=== PATIENT | female | born 1950 | race Caucasian/White ===

== ENCOUNTER 2019-09-22 11:59 | Emergency (ER) | payer MEDICARE, OTHER, SELFPAY ==
[2019-09-22 12:08] VITALS: BP 145/69; PULSE 77; RESP 24; TEMP 36.7; O2SAT 99; BMI 28.9
--- NOTE | 2019-09-22 12:12 | ED_ITS ---
Entered by Ginette Renae, acting as scribe for Mac Frank DO HPI - Dizziness General: Chief Complaint: Dizziness Stated Complaint: N/V DIZZY Time Seen by Provider: 09/22/19 12:12 Source: patient and family Mode of arrival: ambulatory Limitations: no limitations History of Present Illness: HPI Narrative: 61-year-old female presents emergency room complaining of dizziness worse when she moves her head better when she lies very still. She is had nausea with no vomiting or diarrhea no recent head injury. No chest pain no difficulty speech swallowing no facial drooping or vision changes. 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) Timing: sudden onset Severity: moderate Description: sense of movement, lightheadedness and difficulty walking Context: change in body position Exacerbating factors: change in body position (sitting upright) Relieving factors: lying down (on back) Associated symptoms: Reports no associated symptoms; Denies chest pain, chills, malaise or nasal congestion Associated neuro symptoms: Reports no associated symptoms Review of Systems General: Reports: 10 or more systems reviewed and unremarkable except in HPI and below Const: Denies: fever, chills, body aches, change in appetite, fatigue or malaise ENMT: Denies: throat pain, ear pain, nasal discharge or nasal congestion Card: Denies: chest pain, edema, shortness of breath on exertion or shortness of breath when lying down Resp: Denies: shortness of breath, productive cough or non-productive cough GI: Reports: other (dizziness) : Denies: flank pain, difficulty urinating, painful urination, urinary frequency or urinary urgency Skin/Breast: Denies: rash or itching PFSH ED PFSH: Social History Smoking and tobacco status: never smoked Physical Exam Const: COMMON NORMALS: average body habitus, oriented x3 and alert GENERAL APPEARANCE: cooperative, well kempt and well developed NUTRITIONAL APPEARANCE: obese ORIENTATION/CONSCIOUSNESS: Yes awake, Yes oriented to person and Yes oriented to place HENMT: COMMON NORMALS: normocephalic, head/scalp atraumatic, external ears normal, EAC's normal, TM's normal bilaterally, external nose normal, moist oral mucous membranes and oropharynx normal HEAD & SCALP: normocephalic and atraumatic NOSE: external nose normal EXTERNAL EAR: Yes external ears normal EXTERNAL AUDITORY CANAL: EAC's normal TYMPANIC MEMBRANE: TM's normal bilaterally MOUTH: oral and palatal mucosa normal, lip normal and tongue normal THROAT: posterior oropharynx normal and tonsils normal Eye: COMMON NORMALS: PERRL, EOMs intact bilaterally, conjunctivae normal and no scleral icterus CONJUNCTIVA: Yes conjunctivae normal PUPIL: Yes PERRL Neck/C-Spine: COMMON NORMALS: full ROM, no lymphadenopathy, supple, no meningeal signs and thyroid normal THYROID: thyroid normal and asymmetrical Lymph: LYMPHATIC: no lymphadenopathy noted Resp: COMMON NORMALS: normal respiratory effort, no retractions, no use of accessory muscles and clear to auscultation bilaterally AUSCULTATION: clear to auscultation bilaterally Cardio: COMMON NORMALS: regular rate and regular rhythm RATE: regular rate RHYTHM: regular rhythm HEART SOUNDS: no murmurs GI: COMMON NORMALS: normal to inspection, nondistended, normoactive bowel sounds, soft to palpation and no hepatosplenomegaly AUSCULTATION: Yes normoactive bowel sounds PALPATION: Yes soft and Yes no hepatosplenomegaly : COMMON NORMALS: Yes no CVA tenderness BLADDER/KIDNEY EXAM: Yes no CVA tenderness Back/Pelvis: COMMON NORMALS: no CVA tenderness LUMBAR SPINE/LOWER BACK: Yes normal to inspection Extremity: COMMON NORMALS: no clubbing, cyanosis or edema, no calf tenderness and no pedal edema Neuro: COMMON NORMALS: oriented x3 SENSORIUM/ORIENTATION: Yes alert, Yes oriented to person and Yes oriented to place MENINGEAL SIGNS: Yes no meningeal signs Psych: APPEARANCE: Yes well kempt Skin: COMMON NORMALS: no rashes or lesions noted and skin turgor normal GENERAL SKIN EXAM: no rashes or lesions noted and turgor normal Course ED course: Symptoms are reproducible by turning the head. She is feeling better after the fluids and medications were given her here will discharge home with Ativan and meclizine. Reviewed these medications with her as well as side effects return if worsens or persist follow-up with her primary care doctor she may need to be enrolled in vestibular rehab Vital Signs: Vital signs: Vital Signs Temperature 98.0 F 09/22/19 12:08 Pulse Rate 80 09/22/19 16:39 Respiratory Rate 18 09/22/19 16:39 Blood Pressure 118/57 09/22/19 16:39 Pulse Oximetry 95 09/22/19 16:39 MDM - Dizziness Lab Data: Labs: Lab Results 09/22/19 09/22/19 Range/Units 12:27 12:27 WBC 6.4 (4.0-10.0) 10^3/ uL RBC 4.89 (4.1-5.3) 10^6/u L Hgb 14.3 (11.5-15.3) g/dL Hct 44.1 (37.0-47.0) % MCV 90.2 (81-99) fL MCH 29.2 (28.0-34.0) pg MCHC 32.4 (30.0-36.0) g/dL RDW 13.9 (12.1-15.1) % Plt Count 256 (130-400) 10^3/c mm MPV 8.8 (7.4-10.4) fL Neut % (Auto) 64.2 % Lymph % (Auto) 27.2 % [place] % (Auto) 7.6 % Eos % (Auto) 0.2 % Baso % (Auto) 0.5 % Neut # (Auto) 4.1 (1.8-7.7) 10^3/u L Lymph # (Auto) 1.8 (0.8-4.8) 10^3/u L [place] # (Auto) 0.5 (0.2-0.9) 10^3/u L Eos # (Auto) 0.0 (0.0-0.8) 10^3/u L Baso # (Auto) 0.0 (0.0-0.1) 10^3/u L Nucleated RBC % (a uto) 0 % Nucleated RBCs # 0.0 /100WBC Sodium 136 (136-145) mmol/L Potassium 4.1 (3.5-5.1) mmol/L Chloride 102 (98-107) mmol/L Carbon Dioxide 19 L (22-29) mmol/L Anion Gap 19.1 H (5-19) BUN 18 (8-23) mg/dL Creatinine 0.8 (0.5-0.9) mg/dL GFR Calculation 71.3 L (90-130) mL/min Glucose 198 H (65-115) mg/dL Calcium 9.7 (8.5-10.5) mg/dL Total Bilirubin 0.5 (0.15-1.2) mg/dL AST 20 (0-32) U/L ALT 16 (0-33) U/L Alkaline Phosphata se 69 (35-105) IU/L Total Protein 7.8 (6.6-8.7) g/dL Albumin 4.2 (3.5-5.2) g/dL Globulin 3.6 (1.3-4.6) g/dL Discharge Plan Discharge Patient Disposition: Home, Self-Care Clinical Impression: Benign paroxysmal positional vertigo Condition: Stable Prescriptions: New Ativan 1 mg tablet 1 mg PO Q6H PRN (Reason: vertigo) Qty: 14 RF: 0 meclizine 25 mg tablet 25 mg PO QID PRN (Reason: dizziness) Qty: 20 RF: 0 No Action aspirin 325 mg Tablet,Delayed Release (Dr/Ec) 325 mg PO PRN RF: 0 Lexapro 20 mg Tablet 20 mg PO DAILY RF: 0 Discharge Orders: Discharge Order (Routine); Ordered 09/22/19 Ordered By: Mac Frank Referrals: Urvashi Segovia MD [Primary Care Provider] - Discharge Diet: Usual diet Discharge Activity: Increase activity as tolerated Discharge Date/Time: 09/22/19 17:20 Coding Level of Care Code ED Wallpaper Installer for Chg Fwd Exam Comprehensive The documentation recorded by the Oc canas Bridget Annette, accurately reflects the service I personally performed and the decisions made by Monika hooper Curtis L, DO Sep 22, 2019 11:59
--- NOTE | 2019-09-22 12:17 | ECG_ITS ---
Measurements Intervals [place] Rate: 72 P: 69 MT: 174 QRS: 64 QRSD: 75 T: 46 QT: 416 QTc: 457 SINUS RHYTHM Compared to ECG 12/15/2017 13:19:56 No significant changes Electronically Signed On 09-22-2019 13:17:06 [employer]ILVERWARE CLEANER by Monika Remy M.D. [email or web address]
[2019-09-22 12:36] LABS: Basophils % 0.5 %; Eosinophils % 0.2 %; Hematocrit 44.1 % (37.0-47.0); Hemoglobin 14.3 g/dL (11.5-15.3); Lymphocytes # 1.8 10^3/uL (0.8-4.8); Lymphocytes % 27.2 %; Mean Corpuscular HGB Conc 32.4 g/dL (30.0-36.0); Mean Corpuscular Hemoglobin 29.2 pg (28.0-34.0); Mean Corpuscular Volume 90.2 fL (81-99); Mean Platelet Volume 8.8 fL (7.4-10.4); Monocytes # 0.5 10^3/uL (0.2-0.9); Monocytes % 7.6 %; Neutrophils # 4.1 10^3/uL (1.8-7.7); Neutrophils % 64.2 %; Nucleated Red Blood Cells % 0 %; Platelet Count 256 10^3/cmm (130-400); Red Blood Count 4.89 10^6/uL (4.1-5.3); Red Cell Distribution Width 13.9 % (12.1-15.1); White Blood Count 6.4 10^3/uL (4.0-10.0)
[2019-09-22 12:55] LABS: Alanine Aminotransferase 16 U/L (0-33); Albumin Level 4.2 g/dL (3.5-5.2); Alkaline Phosphatase 69 IU/L (35-105); Anion Gap 19.1 (5-19); Aspartate Amino Transferase 20 U/L (0-32); Blood Urea Nitrogen 18 mg/dL (8-23); Calcium 9.7 mg/dL (8.5-10.5); Carbon Dioxide 19 mmol/L (22-29); Chloride 102 mmol/L (98-107); Creatinine Clr Calc Pharmacy 62.3977; Globulin 3.6 g/dL (1.3-4.6); Glomerular Filtration Rate 71.3 mL/min (90-130); Glucose 198 mg/dL (65-115); Potassium 4.1 mmol/L (3.5-5.1); Sodium 136 mmol/L (136-145); Total Bilirubin 0.5 mg/dL (0.15-1.2); Total Protein 7.8 g/dL (6.6-8.7)
--- NOTE | 2019-09-22 12:59 | CT_ITS ---
WS: [id number] CT HEAD TECHNIQUE: Noncontrast CT of the head obtained from the skullbase to the vertex. CLINICAL INFORMATION: vertigo, vomitting COMPARISON: None. DLP: 497.[address] scans at [facility] use at least one of these dose optimization techniques: automat ed exposure control; mA and/or kV adjustment per patient size (includes targeted exams where dose is matched to clinical indication); or iterative reconstruction. FINDINGS: No evidence of intracranial hemorrhage or mass effect. Ventricular system and basal cisterns are santos nt. Mild small vessel changes with moderate parenchymal volume loss. No extra-axial fluid collections . No evidence of mass or mass effect. Normal cuellar-white differentiation. Paranasal sinuses and mastoid air cells are well aerated. .Normal visualized soft tissues. Notified Mac Frank DO at 09/22/2019 2:[address]/CT head wo con* [id number] IMPRESSION: 1. No evidence of intracranial hemorrhage or mass effect. 2. Mild small vessel changes with moderate parenchymal volume loss 3. No acute intracranial findings.
[2019-09-22 14:39] VITALS: BP 87/49; PULSE 73; RESP 16; O2SAT 96
[2019-09-22] MEDS: sodium chloride 0.9% 1,000 ML 999 ML IV (15:22)
[2019-09-22] MEDS: LORazepam 2 mg/mL INJ 1 mL 1 MG IVP (15:22)
[2019-09-22 16:39] VITALS: BP 118/57; PULSE 80; RESP 18; O2SAT 95
== END 2019-09-22 17:20 | disposition home or self-care (01) ==
PROVIDERS: Emergency Provider Family Medicine; Family Provider Family Medicine; PCP Family Medicine
DX: H81.10 Benign paroxysmal vertigo, unspecified ear (principal); E66.9 Obesity, unspecified; Z68.28 Body mass index [BMI] 28.0-28.9, adult
CPT/HCPCS: 36415; 70450; 80053; 85025; 93005; 96361; 96374; 96375; 99283; J2060; J7030

== ENCOUNTER 2021-10-25 13:27 | Outpatient (CLI) | payer MEDICARE, OTHER, SELFPAY ==
--- NOTE | 2021-10-25 13:43 | XR_ITS ---
WS: [id number] Right wrist, 2 views, 10/25/2021 Clinical Data: R WRIST PAIN Comparison: None. Findings: No new fractures or dislocations are seen. The carpal bones are intact. There is no soft tissue swell ing. The distal radius and ulna are not remarkable. Chronic arthritic changes involve the MCP joints and base of the right first metacarpal articulation with the trapezium. There are probable old healed fractures of the distal right radius and ulna. No p eriarticular calcifications are seen. XR/XR wrist RT 2V [id number] Impression: Negative for acute right wrist fracture.
== END 2021-10-25 13:28 | disposition home or self-care (01) ==
LOC: RAD 13:33
PROVIDERS: PCP Family Medicine; Visit Provider Family Medicine
DX: M25.531 Pain in right wrist (principal)
CPT/HCPCS: 73100

== ENCOUNTER → 2022-10-17 09:54 | Outpatient (BNVA) | payer MEDICARE, OTHER, SELFPAY | PROVIDERS: PCP Family Medicine; Visit Provider Family Medicine | DX: E78.5 Hyperlipidemia, unspecified (principal); F32.9 Major depressive disorder, single episode, unspecified; F41.9 Anxiety disorder, unspecified | CPT/HCPCS: 80053; 80061 ==

== ENCOUNTER 2022-10-22 13:36 | Outpatient (CLI) | payer MEDICARE, OTHER, SELFPAY ==
--- NOTE | 2022-10-22 13:45 | XR_ITS ---
WS: [id number] EXAMINATION: XR hip RT 2-3V wo/w pel* [id number] ORDER DATE: 10/22/2022 1:45 PM COMPARISON none HISTORY: hip pain on the right FINDINGS: There is mild right joint space narrowing. Periarticular osteophytes and generalized degenerative ch anges noted. There is no evidence of acute fracture, dislocation, or joint effusion. Ligamentous and/ or intra-articular cartilaginous injury cannot be excluded by radiography. XR/XR hip RT 2-3V wo/w pel* [id number] IMPRESSION: ARTICULAR AND PERIARTICULAR DEGENERATIVE CHANGES OF OSTEOARTHRITIS. IF THERE IS ANY CLINICAL SUSPICION OR PROLONGED SYMPTOMS SUGGESTIVE OF LIGAMENTOUS OR CART ILAGINOUS INJURY OTHER IMAGING MAY BE WARRANTED.
== END 2022-10-22 13:37 | disposition home or self-care (01) ==
LOC: RAD 13:40
PROVIDERS: PCP Family Medicine; Visit Provider Family Medicine
DX: M16.11 Unilateral primary osteoarthritis, right hip (principal)
CPT/HCPCS: 73502

== ENCOUNTER → 2023-04-22 09:44 | Outpatient (BNVA) | payer MEDICARE, OTHER, SELFPAY | PROVIDERS: PCP Family Medicine; Visit Provider Family Medicine | DX: E78.5 Hyperlipidemia, unspecified (principal); F32.9 Major depressive disorder, single episode, unspecified | CPT/HCPCS: 80053; 80061 ==

== ENCOUNTER → 2024-09-16 10:25 | Outpatient (BNVA) | payer MEDICARE, OTHER, SELFPAY | PROVIDERS: PCP Family Medicine; Visit Provider Family Medicine | DX: Z00.00 Encounter for general adult medical examination without abnormal findings (principal); F32.9 Major depressive disorder, single episode, unspecified; F41.9 Anxiety disorder, unspecified; E78.5 Hyperlipidemia, unspecified | CPT/HCPCS: 80053; 80061; 85025 ==

== ENCOUNTER 2024-09-28 12:15 | Outpatient (CLI) | payer MEDICARE, OTHER, SELFPAY ==
--- NOTE | 2024-09-28 13:00 | XR_ITS ---
WS: [id number] SCREENING DEXA SCAN [employer] CLINICAL INFORMATION: screening COMPARISON: None. FINDINGS: The L1-L4 bone mineral density measures 1.379 g/cm2. This corresponds to a T score score of 1.7 and Z score of 3.2. Left femoral neck bone mineral density measures 0.737 g/cm2. This corresponds to a T score of -2.1 and Z score of -0.6. Right femoral neck bone mineral density measures 0.743 g/cm2. This corresponds to a T score -2.1of and Z score of -0.6. Mean femoral neck bone mineral density measures 0.740 g/cm2. This corresponds to a T score of -2.1 and Z score of -0.6. XR/XR DEXA axial skeleton* [id number] IMPRESSION: Normal bone mineralization lumbar spine. Osteopenia femoral necks. Patient's FRAX calculated 10 year probability for major osteoporotic fracture i s 21.8% and osteoporotic hip fracture is 8.4%.
--- NOTE | 2024-09-28 13:40 | MM_ITS ---
WS: [id number] BILATERAL 3D TOMOSYNTHESIS DIGITAL SCREENING MAMMOGRAPHY WITH CAD CLINICAL INFORMATION: screening HISTORY: Screening mammogram. No current complaints. COMPARISON: Baseline TECHNIQUE: Bilateral CC and MLO views. FINDINGS: Scattered fibroglandular densities bilaterally. No suspicious focal mass, asymmetry, calcifications, or architectural distortion. No evidence of malignancy. A few incidental punctate calcifications. MM/MM [place] tomosynthesis [id number] IMPRESSION: DENSITY: There are scattered areas of fibroglandular density. BI-RADS: 2 - Benign. FOLLOW UP: 1 Year Follow-up Recommend return to annual screening mammography.
== END 2024-09-28 12:16 | disposition home or self-care (01) ==
PROVIDERS: PCP Family Medicine; Visit Provider Family Medicine
DX: Z12.31 Encounter for screening mammogram for malignant neoplasm of breast (principal); Z13.820 Encounter for screening for osteoporosis; F32.9 Major depressive disorder, single episode, unspecified; F41.9 Anxiety disorder, unspecified; E78.5 Hyperlipidemia, unspecified; R92.323 Mammographic fibroglandular density, bilateral breasts; R92.1 Mammographic calcification found on diagnostic imaging of breast; M85.88 Other specified disorders of bone density and structure, other site; Z12.11 Encounter for screening for malignant neoplasm of colon
CPT/HCPCS: 77063; 77067; 77080; 99204

== ENCOUNTER 2024-10-07 07:03 | Day surgery (SDC) | payer MEDICARE, OTHER, SELFPAY ==
[2024-10-07 07:13] VITALS: BP 148/81; PULSE 80; RESP 16; TEMP 36.3; O2SAT 94
--- NOTE | 2024-10-07 07:27 | P.HPUD_ITS ---
Surgery/Procedure H&P Update DATE OF PROCEDURE: October 07, 2024 DATE H&P PERFORMED: 09/28/24 H&P UPDATE INFORMATION: I have reviewed H&P completed within last 30 days, I have examined patient prior to procedure, No changes to prior documentation and H&P is in [facility] EMR on date indicated PLANNED PROCEDURE: Operation Date: 10/07/24 08:20 Proposed Procedures p Colonoscopy 92371 G0121 Z12.11(Not Applicable) - Mg Prado MD
--- NOTE | 2024-10-07 07:27 | W.PM.OPSUD ---
Surgery/Procedure H&P Update DATE OF PROCEDURE: October 07, 2024 DATE H&P PERFORMED: 09/28/24 H&P UPDATE INFORMATION: I have reviewed H&P completed within last 30 days, I have examined patient prior to procedure, No changes to prior documentation and H&P is in [facility] [place] on date indicated PLANNED PROCEDURE: Operation Date: 10/07/24 08:20 Proposed Procedures p Colonoscopy 59529 G0121 Z12.11(Not Applicable) - Mg Prado MD
[2024-10-07] MEDS: sodium chloride 0.9% 1,000 ML 30 ML IV (07:31)
--- NOTE | 2024-10-07 07:42 | ANES.PREANE2 ---
Pre-Anesthetic Assessment Height/Weight: Height 1.57 m Weight 68.039 kg Temp Pulse Resp BP Pulse Ox O2 Del Method 97.4 F L 80 16 148/81 94 Room Air 10/07/24 07:13 10/07/24 07:13 10/07/24 07:13 10/07/24 07:13 10/07/24 07:13 10/07/24 07:13 Preop Diagnosis: Hx polyps Operation Date: 10/07/24 08:20 Proposed Procedures p Colonoscopy 97106 G0121 Z12.11(Not Applicable) - Mg Prado MD Was Beta Gema taken within 24 hours: N/A Was Clonidine taken within 24 hours: N/A Last intake: Intake Last Liquid Date 10/06/24 Last Liquid Time 23:30 Last Solid Date 10/05/24 Last Solid Time 19:00 Social No alcohol and No tobacco Exam alert, oriented x 3, clear to auscultation bilaterally and regular rate & rhythm Airway Submandibular: within normal limits Cervical ROM: within normal limits Mallampati: Class II Dentition: full History/ROS No significant history except as noted and No significant complaints Pulmonary None reported CV/HEM None reported None reported Hepatic None reported GI None reported Metabolic None reported Musc/skel Osteoarthritis/DJD Neuropsych None reported Anesthetic Plan ASA status: 2 Anesthesia: Anesthesia Evaluation and MAC Risk of > 500 ml blood loss (7ml/kg in children): No Medications/Allergies Home Medications ?Medication ?Instructions ?Recorded ?Confirmed ?Last Taken ?Type atorvastatin 10 mg tablet 10 mg PO DAILY 10/05/24 10/05/24 10/06/24 History bupropion HCl 150 mg 24 hr tablet, 150 mg PO DAILY 10/05/24 10/05/24 10/06/24 History extended release Allergies Allergy/AdvReac Type Severity Reaction Status Date / Time No Known Allergies Allergy Verified 10/05/24 10:16 Current Medications Generic Name Dose Route Start Last Admin Trade Name Freq PRN Reason Stop Dose Admin Sodium Chloride 1,000 mls @ 30 mls/hr 10/07/24 07:30 10/07/24 07:31 Sodium Chloride 0.9% IV 30 mls/hr .Q24H ROBERT Administration PFSH Anesthesia Medical History Hyperlipidemia Anxiety Social History Smoking and tobacco/nicotine status: never used tobacco/nicotine Data Anesthesia Cardiac Studies: No Data to Display
[2024-10-07 08:44] VITALS: BP 91/57; PULSE 62; RESP 16; TEMP 36.1; O2SAT 98
[2024-10-07 08:56] VITALS: BP 99/57; PULSE 64; RESP 16; O2SAT 99
[2024-10-07 09:15] VITALS: BP 112/62; PULSE 67; RESP 16; O2SAT 99
--- NOTE | 2024-10-07 09:30 | ANE.PACU2 ---
Inpatient post-anesthesia follow up: Airway intact: Yes Vital signs: Temperature 97.0 F Pulse Rate 67 Respiratory Rate 16 Blood Pressure 112/62 Pulse Oximetry 99 Oxygen Delivery Me thod Room Air Oxygen Flow Rate 4 Fraction of Inspir ed Oxygen Hydration adequate: Yes Nausea and vomiting: No Pain level: 1 Mental status: Baseline
== END 2024-10-07 09:30 | disposition home or self-care (01) ==
PROVIDERS: PCP Family Medicine; Visit Provider Surgery
PROC: 0DJD8ZZ Inspection of Lower Intestinal Tract, Via Natural or Artificial Opening Endoscopic (ICD-10-PCS; CPT 45378; principal; 2024-10-07 08:20)
DX: Z12.11 Encounter for screening for malignant neoplasm of colon (principal); D12.0 Benign neoplasm of cecum; D12.4 Benign neoplasm of descending colon; K57.30 Diverticulosis of large intestine without perforation or abscess without bleeding; E78.5 Hyperlipidemia, unspecified; Z79.899 Other long term (current) drug therapy
CPT/HCPCS: 45380; 45385; 88305; J2704; J7030

== ENCOUNTER → 2024-10-19 08:55 | Outpatient (BNVA) | payer MEDICARE, OTHER, SELFPAY | PROVIDERS: PCP Family Medicine; Visit Provider Surgery | DX: Z09 Encounter for follow-up examination after completed treatment for conditions other than malignant neoplasm (principal) | CPT/HCPCS: 99213 ==